=== PATIENT | male | born 1965 | race Caucasian/White ===

== ENCOUNTER 2017-01-20 22:20 | Emergency (ER) | payer OTHER ==
[~2017-01-20] VITALS: Ht 190.5 cm; Wt 120.2 kg
[2017-01-20 22:25] VITALS: BP_SYST 123
--- NOTE | 2017-01-20 22:29 | NUR ---
Patient to ER bed 8 to gown for evaluation. Side rails up. Report given to OLGA KIM.
--- NOTE | 2017-01-20 22:31 | NUR ---
ED Kw[facility] at bedside for medical evaluation.
--- NOTE | 2017-01-20 22:31 | NUR ---
Patient arrived to ED a/o x 4 with c/o left knee pain x 2 days. Patient reports kicking a speed bump while walking yesterday aggrivating the left knee. Moderate swelling noted to the left knee. Patient reports unable to bear weight on the affected extremity. Reports 7/10 pain at this time. PMS present distal to the extremity. Patient reports being seen in ED yesterday. XRay to site negative. Does not appear in immediate distress at this time. Will continue to monitor.
[2017-01-20] MEDS ORDERED: KETOROLAC TROMETHAMINE 60 MG/2 ML VIAL IM ONE (22:45)
--- NOTE | 2017-01-20 23:19 | NUR ---
MARBELLA Wrap applied to the affected extremity. PMS WNL before and after application of wrap.
[2017-01-20 23:40] VITALS: BP_SYST 123
--- NOTE | 2017-01-20 23:40 | NUR ---
Patient given written and verbal discharge instructions and verbalizes understanding. ER MD discussed with patient the results and treatment provided. Patient in stable condition. ID arm band removed. Rx of Naprosyn given. Patient educated on pain management and to follow up with PMD. Pain Scale 2/10 tolerable for patient. Opportunity for questions provided and answered.
== END 2017-01-20 23:40 | disposition home or self-care (01) ==
LOC: SED 22:20
DX: M70.42 Prepatellar bursitis, left knee (principal); Y93.89 Activity, other specified; R03.0 Elevated blood-pressure reading, without diagnosis of hypertension
CPT/HCPCS: 96372; 99283; J1885

== ENCOUNTER 2017-05-11 11:50 | Emergency (ER) | payer OTHER ==
[~2017-05-11] VITALS: Ht 190.5 cm; Wt 124.7 kg
[2017-05-11 11:53] VITALS: BP 129/99; PULSE 75; RESP 17; TEMP 97.2; O2SAT 95
[2017-05-11] MEDS ORDERED: CYCLOBENZAPRINE HCL 10 MG TABLET (FLEXERIL) PO ONE (12:15)
[2017-05-11] MEDS ORDERED: KETOROLAC TROMETHAMINE 30 MG VIAL IM ONE (12:15)
[2017-05-11 13:56] VITALS: BP 128/71; PULSE 70; RESP 18; TEMP 97.2; O2SAT 100
== END 2017-05-11 13:56 | disposition home or self-care (01) ==
LOC: SED 11:50
DX: R51 Headache (principal); M62.838 Other muscle spasm; I10 Essential (primary) hypertension
CPT/HCPCS: 70450; 96372; 99284; J1885

== ENCOUNTER 2022-05-25 16:48 | Emergency (ER) | payer OTHER ==
[~2022-05-25] VITALS: Ht 190.5 cm; Wt 136.1 kg
[2022-05-25 17:28] VITALS: BP_SYST 132
--- NOTE | 2022-05-25 19:46 | NUR ---
Patient to ER bed HB2 to gown for evaluation. Side rails up. Report given to Lucia KIM.
--- NOTE | 2022-05-25 19:52 | NUR ---
ER at bedside examining patient.
--- NOTE | 2022-05-25 19:58 | NUR ---
patient brought in complaining of pain to lower back after cleaning car yesterday. Patient reports he feels like he threw out his back. patient ambulatory. pain 03/17. vss. no acute distress noted.
--- NOTE | 2022-05-25 19:59 | NUR ---
Patient transported to radiology, accompanied by julian lucio
[2022-05-25] MEDS ORDERED: MORPHINE 4 MG INJ. 4 MG/ML VIAL IM ONE (20:00)
--- NOTE | 2022-05-25 20:12 | NUR ---
returned in stable condition
[2022-05-25] MEDS ORDERED: NAPR-690 PO (21:23)
--- NOTE | 2022-05-25 21:27 | NUR ---
Patient given written and verbal discharge instructions and verbalizes understanding. ER MD discussed with patient the results and treatment provided. Patient in stable condition. ID arm band removed. Rx of NAPROXEN given. Patient educated on pain management and to follow up with PMD. Pain Scale 0/10 Opportunity for questions provided and answered.
[2022-05-25 21:57] VITALS: BP_SYST 132
== END 2022-05-25 21:57 | disposition home or self-care (01) ==
LOC: SED 16:48
DX: S33.5XXA Sprain of ligaments of lumbar spine, initial encounter (principal); I10 Essential (primary) hypertension; Z79.899 Other long term (current) drug therapy; X50.1XXA Overexertion from prolonged static or awkward postures, initial encounter; Y93.89 Activity, other specified; Y92.89 Other specified places as the place of occurrence of the external cause; Y99.8 Other external cause status
CPT/HCPCS: 99284; 72131; 76376; 96372; J2270

== ENCOUNTER 2023-02-27 10:50 | Emergency (ER) | payer OTHER ==
[~2023-02-27] VITALS: Ht 190.5 cm; Wt 136.1 kg
[2023-02-27 10:50] VITALS: BP_SYST 144; PULSE 73; RESP 19; TEMP 98; O2SAT 96
[~2023-02-27 10:50] MED LIST: NAPR-690 PO
[2023-02-27 11:23] LABS: BASOPHILS # (AUTO) 0.1 K/uL (0.0-0.2); BASOPHILS % (AUTO) 0.9 % (0.0-2.0); EOSINOPHILS # (AUTO) 0.5 K/uL (0.0-0.4); EOSINOPHILS % (AUTO) 5.9 % (0.0-4.0); HEMATOCRIT 45.8 % (36-54); HEMOGLOBIN 15.7 g/dL (14.0-18.0); LYMPHOCYTES # (AUTO) 1.6 K/uL (1.0-5.5); LYMPHOCYTES % (AUTO) 19.1 % (20.5-51.5); MEAN CORPUSCULAR HEMOGLOBIN 31 pg (27-31); MEAN CORPUSCULAR HGB CONC 34 % (32-36); MEAN CORPUSCULAR VOLUME 90 fL (79.0-98.0); MONOCYTES # (AUTO) 0.8 K/uL (0.0-1.0); MONOCYTES % (AUTO) 9.5 % (1.7-9.3); NEUTROPHILS # (AUTO) 5.2 K/uL (1.8-7.7); NEUTROPHILS % (AUTO) 64.6 % (40.0-70.0); PLATELET COUNT (AUTO) 242 K/uL (130-430); RED BLOOD CELL COUNT(AUTO) 5.08 MIL/uL (4.2-6.2); RED CELL DISTRIBUTION WIDTH 13.8 % (9.0-15.0); WHITE BLOOD COUNT (AUTO) 8.1 K/uL (4.8-10.8)
[2023-02-27 11:31] VITALS: BP_SYST 121; PULSE 73; RESP 14; TEMP 97; O2SAT 94
[2023-02-27 11:39] LABS: ANION GAP 7 (5-15); CALCIUM 9.1 mg/dL (8.4-11.0); CARBON DIOXIDE 26 mmol/L (23-29); CHLORIDE 101 mmol/L (98-107); CREATININE 0.92 mg/dL (0.55-1.30); GFR AFRICAN AMERICAN 110 mL/min (>90); GLUCOSE 117 mg/dL (74-106); SODIUM SERUM 134 mmol/L (136-145); UREA NITROGEN, BLOOD 16 mg/dL (8-21)
[2023-02-27 11:40] LABS: INR 1.1 (0.80-1.20); PROTHROMBIN TIME 11.2 SECS (9.5-12.5)
[2023-02-27 11:53] LABS: COVID19 ANTIGEN SOFIA FIA NEGATIVE (NEGATIVE)
[2023-02-27 11:54] LABS: INFLUENZA TYPE A negative (NEGATIVE); INFLUENZA TYPE B NEGATIVE (NEGATIVE)
[2023-02-27 12:12] LABS: ALANINE AMINOTRANSFERASE 80 U/L (12-78); ALBUMIN 3.6 g/dL (3.4-4.8); ASPARTATE AMINOTRANSFERASE 58 U/L (10-37); TOTAL PROTEIN, SERUM 7.7 g/dL (6.4-8.3)
[2023-02-27 12:18] LABS: GFR NON AFRICAN-AMERICAN 91 mL/min (>90)
[2023-02-27] MEDS ORDERED: ALBMDI INH (12:32)
[2023-02-27] MEDS ORDERED: LEVO-62 PO (12:32)
== END 2023-02-27 12:55 | disposition home or self-care (01) ==
LOC: SED 10:50
DX: S22.42XA Multiple fractures of ribs, left side, initial encounter for closed fracture (principal); R07.81 Pleurodynia; R06.02 Shortness of breath; R91.8 Other nonspecific abnormal finding of lung field; I10 Essential (primary) hypertension; Z79.899 Other long term (current) drug therapy; X58.XXXA Exposure to other specified factors, initial encounter; Y93.89 Activity, other specified; Y92.89 Other specified places as the place of occurrence of the external cause; Y99.8 Other external cause status
CPT/HCPCS: 36415; 71045; 80053; 83605; 83880; 84484; 85025; 85610-TC; 85730-TC; 93005; 99285

== ENCOUNTER 2024-01-17 03:27 | Emergency (ER) | payer OTHER ==
[~2024-01-17] VITALS: Ht 190.5 cm; Wt 131.5 kg
[~2024-01-17 03:27] MED LIST changes: +ALBMDI INH; +LEVO-62 PO
[2024-01-17 03:35] VITALS: BP_SYST 136; PULSE 79; RESP 18; TEMP 97.6; O2SAT 96
[2024-01-17 04:10] VITALS: BP_SYST 135; PULSE 82; RESP 18; TEMP 98.6; O2SAT 95
[2024-01-17 04:15] LABS: BASOPHILS # (AUTO) 0.1 K/uL (0.0-0.2); BASOPHILS % (AUTO) 1.2 % (0.0-2.0); EOSINOPHILS # (AUTO) 0.2 K/uL (0.0-0.4); EOSINOPHILS % (AUTO) 2.6 % (0.0-4.0); HEMOGLOBIN 16.2 g/dL (14.0-18.0); LYMPHOCYTES # (AUTO) 1.4 K/uL (1.0-5.5); LYMPHOCYTES % (AUTO) 16.1 % (20.5-51.5); MEAN CORPUSCULAR HEMOGLOBIN 32 pg (27-31); MEAN CORPUSCULAR HGB CONC 35 % (32-36); MEAN CORPUSCULAR VOLUME 90 fL (79.0-98.0); MONOCYTES # (AUTO) 0.9 K/uL (0.0-1.0); MONOCYTES % (AUTO) 10.1 % (1.7-9.3); PLATELET COUNT (AUTO) 217 K/uL (130-430); RED BLOOD CELL COUNT(AUTO) 5.12 MIL/uL (4.2-6.2); RED CELL DISTRIBUTION WIDTH 13.1 % (9.0-15.0); WHITE BLOOD COUNT (AUTO) 8.6 K/uL (4.8-10.8)
[2024-01-17 04:29] LABS: ALBUMIN 3.4 g/dL (3.4-4.8); CALCIUM 8.9 mg/dL (8.4-11.0); CREATININE 0.95 mg/dL (0.55-1.30)
[2024-01-17] MEDS: IBUPROFEN 600 MG TABLET PO ONE (04:36)
== END 2024-01-17 05:52 | disposition home or self-care (01) ==
LOC: SED 03:27
DX: M79.661 Pain in right lower leg (principal); I10 Essential (primary) hypertension; R00.2 Palpitations; Z90.49 Acquired absence of other specified parts of digestive tract; Z98.890 Other specified postprocedural states; Z79.899 Other long term (current) drug therapy; Z79.2 Long term (current) use of antibiotics
CPT/HCPCS: 36415; 80053; 85025; 93971; 99284